=== PATIENT | female | born 1930 | race African-American/Black ===

== ENCOUNTER 2016-08-06 16:14 | Emergency (ER) | payer OTHER, MEDICARE ==
[~2016-08-06] VITALS: Ht 162.6 cm; Wt 54.4 kg
[~2016-08-06 16:14] MED LIST: ACCUNEB SO1.25 MG/1 INH; ACETAMINOPHEN325 M1 PO; ASPIR 8181 MG PO; ATIVAN0.5 M1; ATROVENT HFA14 GM INH; COREG12.5 MG PO; DEMADEX20 MG PO; FOLIC ACID1 MG PO; LEVAQUIN 500 M500 M1 PO; MEGACE40 MG/ML PER TUBE; MELATONIN3 MG PER TUBE; PACERONE 200 M200 M1 PER TUBE; PACERONE 200 M200 M1 PO; PEPCID20 MG; PROTONIX40 M1 PO; VITAMIN B-1100 M2 PO
[2016-08-06] MEDS ORDERED: IRON325 PO (16:41)
[2016-08-06] MEDS ORDERED: PROZAC20 MG PO (16:41)
[2016-08-06 17:19] LABS: MCHC 34.8 g/dL (28.0-37.0)
[2016-08-06 17:20] LABS: HEMATOCRIT 21.7 % (37.0-47.0); HEMOGLOBIN 7.6 gm/dL (12.0-15.0); MCH 34.4 pg (26.0-34.0); MCV 98.8 fL (80.0-100.0); PLATELET COUNT 294 thou/uL (150-400); RDW 13.8 % (10.5-14.5); WBC 13.6 thou/uL (4.0-11.0)
[2016-08-06 17:28] LABS: MANUAL DIFF YES
[2016-08-06 17:50] LABS: ABSOLUTE NEUTROPHILS 9.1 thou/uL (1.4-8.2); ANISOCYTOSIS 2+; POLYCHROMASIA OCCASIONAL; TOTAL CELL COUNT 100
== END 2016-08-06 20:02 | disposition home or self-care (01) ==
LOC: ER 16:14
PROVIDERS: Nurse Practitioner
DX: R94.8 Abnormal results of function studies of other organs and systems (principal); I13.0 Hypertensive heart and chronic kidney disease with heart failure and stage 1 through stage 4 chronic kidney disease, or unspecified chronic kidney disease; N18.3 Chronic kidney disease, stage 3 (moderate); I50.9 Heart failure, unspecified; F03.90 Unspecified dementia, unspecified severity, without behavioral disturbance, psychotic disturbance, mood disturbance, and anxiety; K21.9 Gastro-esophageal reflux disease without esophagitis; Z79.82 Long term (current) use of aspirin

== ENCOUNTER 2016-11-07 16:32 | Emergency (ER) | payer OTHER, MEDICARE ==
[~2016-11-07] VITALS: Ht 165.1 cm; Wt 72.6 kg
[~2016-11-07 16:32] MED LIST changes: +IRON325 PO; +PROZAC20 MG PO
[2016-11-07 16:56] LABS: URINE BILIRUBIN NEGATIVE (Negative); URINE BLOOD NEGATIVE (Negative); URINE COLOR YELLOW; URINE GLUCOSE-RANDOM* NEGATIVE (Negative); URINE KETONES NEGATIVE (Negative); URINE NITRITE NEGATIVE (Negative); URINE PROTEIN (DIPSTICK) 1+ (Negative); URINE SPECIFIC GRAVITY 1.015 (1.003-1.035); URINE UROBILINOGEN 0.2 E.U./dl (0.2-1.0)
[2016-11-07 17:17] LABS: ABSOLUTE NEUTROPHILS 4.9 thou/uL (1.4-8.2); BASOPHILS 0.4 % (0.0-2.0); EOSINOPHILS 1.4 % (0.0-3.0); HEMATOCRIT 26.8 % (37.0-47.0); HEMOGLOBIN 9.5 gm/dL (12.0-15.0); LYMPHOCYTES 10.2 % (24.0-44.0); MCH 33.1 pg (26.0-34.0); MCHC 35.4 g/dL (28.0-37.0); MCV 93.3 fL (80.0-100.0); MONOCYTES 7.1 % (1.0-8.0); PLATELET COUNT 276 thou/uL (150-400); POLYS 80.9 % (36.0-66.0); RBC 2.87 mil/uL (4.20-5.00); RDW 14.6 % (10.5-14.5); WBC 6.1 thou/uL (4.0-11.0)
[2016-11-07 17:17] LABS: BACTERIA >30 Many /HPF (None Seen); CRYSTALS None Seen /LPF (None Seen); HYALINE CASTS 0-3 Few /LPF (None Seen); SQUAMOUS 0-3 Few /LPF (0-3)
[2016-11-07 17:18] LABS: URINE RBC None Seen /HPF (0-2); URINE WBC 0-5 Rare /HPF (0-5)
[2016-11-07 17:18] LABS: MANUAL DIFF NO
[2016-11-07 17:25] LABS: CALCIUM 8.8 mg/dL (8.5-10.1); CREATININE 2.4 mg/dL (0.6-1.0); POTASSIUM 3.2 mmol/L (3.5-5.1)
[2016-11-07 17:30] LABS: ALBUMIN 2.2 g/dL (3.4-5.0); TOTAL BILIRUBIN 0.3 mg/dL (<0.1-1.0); TOTAL PROTEIN 6.2 g/dL (6.4-8.2)
[2016-11-07] MEDS ORDERED: SENNA8.6 MG PO (20:21)
[2016-11-07] MEDS ORDERED: MIRALAX17 GM PO (20:21)
[2016-11-07] MEDS ORDERED: LIDOCAINE 22 %/30 GM MM (20:21)
[2016-11-07] MEDS ORDERED: ADULT SUPPOSIT1 EACH RECTAL (20:55)
== END 2016-11-07 20:58 ==
LOC: ER 16:32
PROVIDERS: Physician Assistant
DX: K64.4 Residual hemorrhoidal skin tags (principal); K56.41 Fecal impaction; I13.0 Hypertensive heart and chronic kidney disease with heart failure and stage 1 through stage 4 chronic kidney disease, or unspecified chronic kidney disease; N18.3 Chronic kidney disease, stage 3 (moderate); I50.9 Heart failure, unspecified; F03.90 Unspecified dementia, unspecified severity, without behavioral disturbance, psychotic disturbance, mood disturbance, and anxiety; K21.9 Gastro-esophageal reflux disease without esophagitis; M06.9 Rheumatoid arthritis, unspecified; F17.200 Nicotine dependence, unspecified, uncomplicated; Z86.2 Personal history of diseases of the blood and blood-forming organs and certain disorders involving the immune mechanism; Z85.528 Personal history of other malignant neoplasm of kidney